=== PATIENT | male | born 1965 | race Caucasian/White ===

== ENCOUNTER → 2025-01-06 14:19 | Outpatient (BNVA) | payer OTHER, SELFPAY | PROVIDERS: Visit Provider Specialist | DX: G56.02 Carpal tunnel syndrome, left upper limb (principal); R29.898 Other symptoms and signs involving the musculoskeletal system; M06.4 Inflammatory polyarthropathy; M79.89 Other specified soft tissue disorders | CPT/HCPCS: 36415; 73130; 80053; 84550; 85025; 85651; 86140; 86200; 86225; 86235; 86431 ==